=== PATIENT | female | born 1950 | race Caucasian/White ===

== ENCOUNTER 2021-08-22 11:55 | Inpatient (IN) | payer OTHER ==
[2021-08-22 12:08] VITALS: BMI 31.1
[2021-08-22 13:36] LABS: BASO % 0.3 % (0-2.0); EOS % 0.1 % (0-4.5); HEMATOCRIT 41.2 % (32.4-45.2); LYMPH % 8.6 % (8-40); MCH 30.9 pg (25.7-33.7); MEAN CELL VOLUME 90.7 fl (80-96); MEAN PLT VOLUME 8.7 fl (7.5-11.1); MONO % 3.8 % (3.8-10.2); NEUT % 87.2 % (42.8-82.8); PLATELET COUNT 237 10^3/uL (134-434); RBC 4.54 M/mm3 (3.60-5.2); RDW 13.4 % (11.6-15.6); WHITE BLOOD COUNT 14.6 K/mm3 (4.0-10.0)
[2021-08-22 13:43] LABS: INR 0.95 (0.83-1.09); PROTHROMBIN TIME (PATIENT) 11.7 SEC (9.7-13.0)
[2021-08-22 13:46] LABS: ACTIVATED PTT 26.8 SECONDS (25.2-36.5)
[2021-08-22 14:06] LABS: ALBUMIN 3.9 g/dl (3.4-5.0)
[2021-08-22 14:08] LABS: CALCIUM 8.7 mg/dL (8.5-10.1)
[2021-08-22 14:09] LABS: CREATININE 0.7 mg/dL (0.55-1.3)
[2021-08-22 14:11] LABS: BILIRUBIN,TOTAL 0.7 mg/dL (0.2-1)
[2021-08-22] MEDS ORDERED: PIPERACILLIN/TAZOB 4.5 GM 4.5 GM/100 ML BAG IVPB ONE ×3 (14:12→19:52)
[2021-08-22] MEDS ORDERED: SODIUM CHLORIDE 1,000 ML IV STA (15:25)
[2021-08-22] MEDS ORDERED: ROCURONIUM BROMIDE 50 MG/5 ML SYRINGE ONE ×2 (15:37→17:45)
[2021-08-22] MEDS ORDERED: SUCCINYLCHOLINE CHLORIDE 200 MG/10 ML SYRINGE ONE (15:37)
[2021-08-22] MEDS ORDERED: PROPOFOL 20 ML ONE (15:37)
[2021-08-22] MEDS ORDERED: MIDAZOLAM HCL 2 MG/2 ML SINGLE DOSE VIAL ONE (15:37)
[2021-08-22] MEDS ORDERED: PIPERACILLIN/TAZOBACTAM 3.375 GM VIAL IVPB ONE ×2 (16:40→16:42)
[2021-08-22] MEDS ORDERED: ONDANSETRON 4 MG/2 ML VIAL IVPUSH PRN ×2 (17:42→19:52)
[2021-08-22] MEDS ORDERED: LACTATED RINGERS SOLUTION 1,000 ML IV SCH (17:45)
[2021-08-22] MEDS ORDERED: NEOSTIGMINE METHYLSULFATE 0.5 MG/1 ML - 10 ML MDV ONE (19:00)
[2021-08-22] MEDS ORDERED: ONDANSETRON 4 MG/2 ML VIAL ONE (19:02)
[2021-08-22] MEDS ORDERED: GLYCOPYRROLATE 0.2 MG/1 ML VIAL ONE (19:02)
[2021-08-22] MEDS ORDERED: DEXAMETHASONE SOD PHOSPHATE 4 MG/1 ML VIAL ONE (19:02)
[2021-08-22] MEDS ORDERED: LIDOCAINE HCL/PF 2% SDV 5ML VIAL ONE (19:02)
[2021-08-22] MEDS ORDERED: ACETAMINOPHEN 325 MG TABLET (FP) PO PRN (20:00)
[2021-08-22] MEDS ORDERED: HYDROmorphone HCl 2 MG/ML VIAL IVPUSH PRN (20:10)
[2021-08-22] MEDS ORDERED: HYDROmorphone HCl 2 MG/ML VIAL ONE (20:16)
[2021-08-22] MEDS: LACTATED RINGERS SOLUTION 1,000 ML IV SCH (20:32)
[2021-08-22] MEDS ORDERED: PIPERACILLIN/TAZOB 4.5 GM 4.5 GM in DEXTROSE 5%-WATER 100 ML IVPB SCH (22:00)
[2021-08-22] MEDS: IBUPROFEN 600 MG TABLET (FP) PO SCH (22:35)
[2021-08-23] MEDS: LACTATED RINGERS SOLUTION 1,000 ML IV SCH ×3 (03:31→21:27)
[2021-08-23] MEDS: IBUPROFEN 600 MG TABLET (FP) PO SCH ×3 (05:46→21:26)
[2021-08-23] MEDS: HEPARIN NA (PORCINE) 5,000 UNITS/ML 1ML VIAL SQ SCH ×3 (05:46→21:27)
[2021-08-23] MEDS ORDERED: PIPERACILLIN/TAZOB 4.5 GM 4.5 GM in DEXTROSE 5%-WATER 100 ML IVPB SCH (08:00)
[2021-08-23 09:29] LABS: HEMATOCRIT 34.8 % (32.4-45.2); MCH 31.1 pg (25.7-33.7); MCHC 34.5 g/dl (32.0-36.0); MEAN CELL VOLUME 90.1 fl (80-96); MEAN PLT VOLUME 9.5 fl (7.5-11.1); PLATELET COUNT 238 10^3/uL (134-434); RBC 3.86 M/mm3 (3.60-5.2); RDW 13.1 % (11.6-15.6); WHITE BLOOD COUNT 16.9 K/mm3 (4.0-10.0)
[2021-08-23 09:43] LABS: CALCIUM 8.4 mg/dL (8.5-10.1)
[2021-08-23 09:44] LABS: ALBUMIN 3.2 g/dl (3.4-5.0); BLOOD UREA NITROGEN 9.8 mg/dL (7-18)
[2021-08-23 09:47] LABS: CREATININE 0.7 mg/dL (0.55-1.3)
[2021-08-23 09:48] LABS: BILIRUBIN,TOTAL 0.7 mg/dL (0.2-1)
[2021-08-23 09:50] LABS: TOT PROT 5.8 g/dl (6.4-8.2)
[2021-08-23] MEDS ORDERED: PIPERACILLIN/TAZOBACTAM 4.5 GM VIAL IVPB ONE ×2 (09:51→16:43)
[2021-08-23] MEDS ORDERED: DEXTROSE 5%-WATER 100 ML IVPB ONE ×2 (09:51→16:43)
[2021-08-23] MEDS: oxyCODONE HCL 5 MG TABLET PO PRN (15:03)
[2021-08-23] MEDS: PIPERACILLIN/TAZOB 4.5 GM 4.5 GM in DEXTROSE 5%-WATER 100 ML IVPB SCH (17:05)
[2021-08-24] MEDS ORDERED: DEXTROSE 5%-WATER 100 ML IVPB ONE ×3 (00:31→16:34)
[2021-08-24] MEDS ORDERED: PIPERACILLIN/TAZOBACTAM 4.5 GM VIAL IVPB ONE ×3 (00:31→16:34)
[2021-08-24] MEDS: PIPERACILLIN/TAZOB 4.5 GM 4.5 GM in DEXTROSE 5%-WATER 100 ML IVPB SCH ×3 (01:34→17:39)
[2021-08-24] MEDS: oxyCODONE HCL 5 MG TABLET PO PRN (02:56)
[2021-08-24] MEDS: IBUPROFEN 600 MG TABLET (FP) PO SCH ×3 (06:05→22:30)
[2021-08-24] MEDS: LACTATED RINGERS SOLUTION 1,000 ML IV SCH ×3 (06:05→22:30)
[2021-08-24] MEDS: HEPARIN NA (PORCINE) 5,000 UNITS/ML 1ML VIAL SQ SCH ×3 (06:06→22:31)
[2021-08-24] MEDS ORDERED: oxyCODONE HCL 5 MG TABLET PO PRN ×2 (07:35→07:37)
[2021-08-24] MEDS ORDERED: HYDROmorphone HCl 2 MG/ML VIAL IVPUSH PRN (07:37)
[2021-08-24] MEDS ORDERED: BENZOCAINE/MENTH/CETYLPYRD CL 1 EACH LOZENGE MM PRN (07:37)
[2021-08-24] MEDS ORDERED: ACETAMINOPHEN 500 MG TABLET (FP) PO PRN ×2 (07:37→07:48)
[2021-08-24 08:10] LABS: CARCINOEMBRYONIC ANTIGEN 1.8 ng/mL (0.0-4.7)
[2021-08-24 09:01] LABS: BASO % 0.6 % (0-2.0); EOS % 0.5 % (0-4.5); HEMATOCRIT 30.3 % (32.4-45.2); HEMOGLOBIN 10.5 GM/dL (10.7-15.3); LYMPH % 21.5 % (8-40); MCH 31.3 pg (25.7-33.7); MCHC 34.8 g/dl (32.0-36.0); MEAN CELL VOLUME 90.1 fl (80-96); MEAN PLT VOLUME 9.3 fl (7.5-11.1); MONO % 5.4 % (3.8-10.2); PLATELET COUNT 203 10^3/uL (134-434); RBC 3.36 M/mm3 (3.60-5.2); RDW 13.4 % (11.6-15.6); WHITE BLOOD COUNT 13.2 K/mm3 (4.0-10.0)
[2021-08-24 09:33] LABS: ALBUMIN 2.7 g/dl (3.4-5.0); BLOOD UREA NITROGEN 7.6 mg/dL (7-18)
[2021-08-24 09:36] LABS: CREATININE 0.6 mg/dL (0.55-1.3)
[2021-08-24 09:38] LABS: BILIRUBIN,TOTAL 0.7 mg/dL (0.2-1); TOT PROT 5.5 g/dl (6.4-8.2)
[2021-08-25] MEDS ORDERED: PIPERACILLIN/TAZOBACTAM 4.5 GM VIAL IVPB ONE ×3 (02:01→17:02)
[2021-08-25] MEDS ORDERED: DEXTROSE 5%-WATER 100 ML IVPB ONE ×3 (02:02→17:02)
[2021-08-25] MEDS: PIPERACILLIN/TAZOB 4.5 GM 4.5 GM in DEXTROSE 5%-WATER 100 ML IVPB SCH ×3 (03:11→17:10)
[2021-08-25] MEDS: LACTATED RINGERS SOLUTION 1,000 ML IV SCH ×2 (05:44→20:46)
[2021-08-25] MEDS: IBUPROFEN 600 MG TABLET (FP) PO SCH ×3 (05:45→21:05)
[2021-08-25] MEDS: HEPARIN NA (PORCINE) 5,000 UNITS/ML 1ML VIAL SQ SCH ×3 (05:45→21:03)
[2021-08-25 08:46] LABS: EOS % 2.5 % (0-4.5); HEMATOCRIT 31.9 % (32.4-45.2); HEMOGLOBIN 11.2 GM/dL (10.7-15.3); LYMPH % 25.8 % (8-40); MCH 31.6 pg (25.7-33.7); MCHC 35.1 g/dl (32.0-36.0); MEAN CELL VOLUME 90.1 fl (80-96); MEAN PLT VOLUME 9.4 fl (7.5-11.1); MONO % 6.8 % (3.8-10.2); NEUT % 63.9 % (42.8-82.8); PLATELET COUNT 213 10^3/uL (134-434); RBC 3.54 M/mm3 (3.60-5.2); RDW 13.5 % (11.6-15.6); WHITE BLOOD COUNT 9.2 K/mm3 (4.0-10.0)
[2021-08-26] MEDS ORDERED: DEXTROSE 5%-WATER 100 ML IVPB ONE ×2 (00:22→10:06)
[2021-08-26] MEDS ORDERED: PIPERACILLIN/TAZOBACTAM 4.5 GM VIAL IVPB ONE ×2 (00:22→10:06)
[2021-08-26] MEDS: PIPERACILLIN/TAZOB 4.5 GM 4.5 GM in DEXTROSE 5%-WATER 100 ML IVPB SCH ×2 (01:05→11:04)
[2021-08-26] MEDS: IBUPROFEN 600 MG TABLET (FP) PO SCH ×3 (05:52→21:09)
[2021-08-26] MEDS: HEPARIN NA (PORCINE) 5,000 UNITS/ML 1ML VIAL SQ SCH ×3 (05:52→21:12)
[2021-08-26] MEDS: LACTATED RINGERS SOLUTION 1,000 ML IV SCH (06:24)
[2021-08-26] MEDS ORDERED: ACETAMINOPHEN 325 MG TABLET (FP) PO PRN (08:01)
[2021-08-26 09:45] LABS: HEMATOCRIT 33.6 % (32.4-45.2); HEMOGLOBIN 11.6 GM/dL (10.7-15.3); MCH 31.2 pg (25.7-33.7); MCHC 34.6 g/dl (32.0-36.0); MEAN CELL VOLUME 90.1 fl (80-96); MEAN PLT VOLUME 9.3 fl (7.5-11.1); PLATELET COUNT 247 10^3/uL (134-434); RBC 3.72 M/mm3 (3.60-5.2); RDW 13.2 % (11.6-15.6); WHITE BLOOD COUNT 8.6 K/mm3 (4.0-10.0)
[2021-08-26 09:57] LABS: ALBUMIN 3.2 g/dl (3.4-5.0)
[2021-08-26 10:00] LABS: CALCIUM 8.6 mg/dL (8.5-10.1)
[2021-08-26 10:02] LABS: BLOOD UREA NITROGEN 6.8 mg/dL (7-18)
[2021-08-26 10:04] LABS: BILIRUBIN,TOTAL 0.5 mg/dL (0.2-1); CREATININE 0.7 mg/dL (0.55-1.3)
[2021-08-26] MEDS ORDERED: KCL 10 MEQ IVPB 10 MEQ/100 ML INFUS.BAG IVPB SCH (13:45)
[2021-08-26] MEDS: POTASSIUM CHLORIDE TABS 20 MEQ TABLET.ER (FP) PO SCH (15:42)
[2021-08-26] MEDS: metroNIDAZOLE 250 MG TABLET PO SCH ×2 (15:42→21:08)
[2021-08-26] MEDS: AMOX TR/POT CLAV 875MG/125MG TABLETS (FP) PO SCH (18:14)
[2021-08-27] MEDS: HEPARIN NA (PORCINE) 5,000 UNITS/ML 1ML VIAL SQ SCH ×2 (05:38→13:16)
[2021-08-27] MEDS: metroNIDAZOLE 250 MG TABLET PO SCH ×2 (05:39→13:39)
[2021-08-27] MEDS: IBUPROFEN 600 MG TABLET (FP) PO SCH ×2 (05:40→13:39)
[2021-08-27 07:50] LABS: BASO % 1.1 % (0-2.0); EOS % 4.4 % (0-4.5); HEMATOCRIT 33.2 % (32.4-45.2); HEMOGLOBIN 11.7 GM/dL (10.7-15.3); LYMPH % 26.4 % (8-40); MCH 31.6 pg (25.7-33.7); MCHC 35.3 g/dl (32.0-36.0); MEAN CELL VOLUME 89.5 fl (80-96); MEAN PLT VOLUME 8.8 fl (7.5-11.1); MONO % 6.3 % (3.8-10.2); NEUT % 61.8 % (42.8-82.8); PLATELET COUNT 231 10^3/uL (134-434); RBC 3.71 M/mm3 (3.60-5.2); RDW 13.1 % (11.6-15.6); WHITE BLOOD COUNT 8.3 K/mm3 (4.0-10.0)
[2021-08-27 08:18] LABS: BLOOD UREA NITROGEN 9.8 mg/dL (7-18); CALCIUM 8.5 mg/dL (8.5-10.1)
[2021-08-27 08:21] LABS: CREATININE 0.6 mg/dL (0.55-1.3)
[2021-08-27 08:23] LABS: BILIRUBIN,TOTAL 1.3 mg/dL (0.2-1); TOT PROT 5.7 g/dl (6.4-8.2)
[2021-08-27] MEDS: AMOX TR/POT CLAV 875MG/125MG TABLETS (FP) PO SCH (08:53)
[2021-08-27] MEDS ORDERED: PT OWN MED DRAWER 7, Y5N ONE (09:41)
[2021-08-27] MEDS: POTASSIUM CHLORIDE TABS 20 MEQ TABLET.ER (FP) PO SCH (09:52)
[2021-08-27 15:24] VITALS: BP 147/80; PULSE 59; TEMP 97.4
== END 2021-08-27 17:42 | disposition home health service (06) | DRG 907 ==
LOC: JER 11:55 → JERBED 15:38 → J8W 21:24
PROVIDERS: ADMIT Internal Medicine; ATTEND Internal Medicine
PROC: 0DJD8ZZ Inspection of Lower Intestinal Tract, Via Natural or Artificial Opening Endoscopic (ICD-10-PCS; 2021-08-22)
PROC: 0DTN4ZZ Resection of Sigmoid Colon, Percutaneous Endoscopic Approach (ICD-10-PCS; principal; 2021-08-22 17:00)
DX: K91.71 Accidental puncture and laceration of a digestive system organ or structure during a digestive system procedure (principal); K63.1 Perforation of intestine (nontraumatic); I10 Essential (primary) hypertension; E03.9 Hypothyroidism, unspecified; E05.90 Thyrotoxicosis, unspecified without thyrotoxic crisis or storm; E78.5 Hyperlipidemia, unspecified; K21.9 Gastro-esophageal reflux disease without esophagitis; D72.829 Elevated white blood cell count, unspecified; Y83.9 Surgical procedure, unspecified as the cause of abnormal reaction of the patient, or of later complication, without mention of misadventure at the time of the procedure; K57.90 Diverticulosis of intestine, part unspecified, without perforation or abscess without bleeding
CPT/HCPCS: 36415; 71045-TC-FY; 74177-TC; 80053; 82272; 82378; 83690; 85025; 85027; 85610; 85730; 86140; 86301; 86304; 86850; 86870; 86900; 86901; 86902; 88307-TC; 93005; 93010; 94010; 94760; 97116-GP; 97161-GP; 99285-25; C9803; J1644; Q9967; U0003; U0005

== ENCOUNTER 2023-10-29 04:17 | Day surgery (SDC) | payer OTHER ==
[2023-10-26 16:05] VITALS: BMI 30.2
[2023-10-29] MEDS ORDERED: LIDOCAINE 1%/EPI 1:100000 (20 ML MULTI DOSE VIAL) ONE (07:46)
[2023-10-29] MEDS ORDERED: MIDAZOLAM HCL 2 MG/2 ML SINGLE DOSE VIAL ONE (10:20)
[2023-10-29] MEDS ORDERED: FENTANYL CITRATE/PF 50 MCG/ML VIAL ONE (10:20)
[2023-10-29] MEDS ORDERED: LIDOCAINE 1%/EPI 1:100000 (50 ML MULTI DOSE VIAL) NR ONE (10:45)
[2023-10-29 12:47] VITALS: BP 135/69; PULSE 56; RESP 18; TEMP 97
== END 2023-10-29 13:26 | disposition home or self-care (01) ==
LOC: JASU-SURG 04:17
PROVIDERS: ATTEND Surgery
PROC: 0JBP0ZZ Excision of Left Lower Leg Subcutaneous Tissue and Fascia, Open Approach (ICD-10-PCS; principal; 2023-10-29 10:00)
DX: D17.24 Benign lipomatous neoplasm of skin and subcutaneous tissue of left leg (principal)
CPT/HCPCS: 88304-TC